=== PATIENT | male | born 1995 | race Hispanic/Latino ===

== ENCOUNTER 2024-12-02 17:13 | Emergency (ER) | payer OTHER ==
[~2024-12-02] VITALS: Ht 172.7 cm; Wt 95.3 kg
[2024-12-02 17:50] VITALS: PULSE 79; RESP 18; TEMP 98.7
[2024-12-02 23:43] VITALS: BP 127/84; PULSE 74; RESP 18; TEMP 98.2; O2SAT 98
== END 2024-12-02 20:32 | disposition home or self-care (01) ==
LOC: ER 17:40
DX: S02.2XXA Fracture of nasal bones, initial encounter for closed fracture (principal); W18.30XA Fall on same level, unspecified, initial encounter; Y92.89 Other specified places as the place of occurrence of the external cause
CPT/HCPCS: 70486; 99283